=== PATIENT | male | born 1965 | race Caucasian/White ===

== ENCOUNTER 2021-02-27 10:40 | Emergency (ER) | payer OTHER ==
[~2021-02-27 10:40] MED LIST: ASPIRIN EC325 MG PO; DRISDOL50000 UNIT PO; LIPITOR 10MG TA10 MG PO; NORCO 5-325 TA1 EACH PO; PREDNISONE20 MG PO; PRINIVIL10 MG PO; ZANTAC150 MG PO
[2021-02-27] MEDS ORDERED: AUGMENTIN 875-1 EACH PO (12:35)
[2021-02-27] MEDS ORDERED: NORCO 5-325 TA1 EACH PO (12:35)
[2021-02-27] MEDS ORDERED: NAPROXEN500 MG PO (12:35)
== END 2021-02-27 12:59 | disposition home or self-care (01) ==
LOC: FER 10:40
DX: K04.7 Periapical abscess without sinus (principal); I10 Essential (primary) hypertension
CPT/HCPCS: 99283; J0696

== ENCOUNTER 2021-07-23 08:46 | Emergency (ER) | payer OTHER ==
[~2021-07-23 08:46] MED LIST changes: +AUGMENTIN 875-1 EACH PO; +NAPROXEN500 MG PO
[2021-07-23 09:24] LABS: BASOPHIL 0.9 % (0-2); EOSINOPHIL 5.7 % (0-5); HCT 49.9 % (42.0-52.0); HGB 16.5 g/dl (13.2-18.0); LYMPHOCYTE 28.4 % (15-48); MCH 28.8 pg (25.0-31.0); MCHC 33.1 g/dL (32.0-36.0); MCV 87.2 fL (78.0-100.0); MONOCYTE 10.4 % (0-12); NEUTROPHIL 54.2 % (41-80); NRBC 0; PLT 275 K/uL (150-400); RBC 5.72 M/uL (4.70-6.00); RDW 13.7 % (11.5-14.0); WBC 6.8 K/uL (4.0-10.5)
[2021-07-23 09:59] LABS: INR 1.05 (0.9-1.2); PROTHROMBIN TIME 13.1 SECONDS (11.8-13.4)
[2021-07-23 10:05] LABS: BILIRUBIN NEGATIVE (NEGATIVE); BLOOD TRACE-INTACT Ery/uL (NEGATIVE); CLARITY CLEAR (CLEAR); COLOR ORANGE (YELLOW); GLUCOSE (U) NORMAL (NORMAL); LEUKOCYTES NEGATIVE Leu/uL (NEGATIVE); NITRITE NEGATIVE (NEGATIVE); PROTEIN NEGATIVE (NEGATIVE); SPECIFIC GRAVITY 1.025 (1.001-1.030); UROBILINOGEN 0.2 mg/dL (0.2-1.0)
[2021-07-23 10:11] LABS: ALBUMIN 3.8 g/dL (3.4-5.0); BILIRUBIN - TOTAL 0.6 mg/dL (0.2-1.0); BUN/CREAT RATIO (CALC) 15.4 RATIO; CREATININE 0.78 mg/dL (0.67-1.17); GLOBULIN (CALCULATION) 3.7 g/dL; POTASSIUM 4.1 mmol/L (3.5-5.1); TOTAL PROTEIN 7.5 g/dL (6.4-8.2)
[2021-07-23 10:12] LABS: IRON % SATURATION 40.1 %SAT (20-50)
[2021-07-23 10:33] LABS: BACTERIA TRACE; MUCOUS MODERATE
[2021-07-23] MEDS ORDERED: ZPAK PO (11:14)
[2021-07-23] MEDS ORDERED: ULTRAM50 MG PO (11:14)
== END 2021-07-23 12:07 | disposition home or self-care (01) ==
LOC: FER 08:46
PROVIDERS: Emergency Medicine
DX: R07.89 Other chest pain (principal); F17.220 Nicotine dependence, chewing tobacco, uncomplicated
CPT/HCPCS: 36415; 71045; 80053; 81001; 83540; 83550; 83880; 84484; 85025; 85379; 85610; 85730; 93005; J2270; J2405